=== PATIENT | female | born 2000 | race Asian ===

== ENCOUNTER 2025-09-10 08:46 | Outpatient (REF) | payer OTHER, SELFPAY ==
--- NOTE | ~2025-09-10 | US_ITS ---
EXAMINATION: US PELVIS CLINICAL INFORMATION: 25-year-old female, irregular bleeding past 2 months. IUD. COMPARISON: No prior previous imaging. TECHNIQUE: Ultrasound of the pelvis is performed using both transabdominal and transvaginal transducers along with Doppler. Transvaginal imaging is performed due to inadequate visualization transabdominally. FINDINGS: Uterus: The uterus is anteverted, anteflexed and measures 7.7 x 3.3 x 4.8 cm. The cervix appears normal. The double wall endometrial thickness is 5 mm. It is uniform in appearance. The IUD appears appropriately positioned within the endometrial canal. The uterus is smooth in contour and has normal myometrial echogenicity. No visible fibroid. Adnexa: Both ovaries are visualized. There is normal color flow to the adnexa. There is no ovarian torsion. There is no pelvic ascites or fluid collection. There are no adnexal masses. Right ovary measures 3.2 x 1.9 x 1.8 cm. Volume = 5.6 mL. Normal sonographic appearance. Left ovary measures 3.3 x 3.2 x 3.3 cm. Volume = 18.3 mL. There is a follicular simple cyst measuring 2.9 x 2.2 x 2.6 cm. Otherwise normal sonographic appearance. US/US pelvic and transvaginal IMPRESSION: 1. Normal-appearing endometrium with appropriately positioned IUD. 2. Normal myometrium without focal abnormality. 3. Left ovarian follicular cyst measuring 2.9 cm. Ovaries are otherwise normal. 4. No free pelvic fluid present. Electronically signed by: Juwan Malloy MD 09/10/2025 11:23 AM [facility]
== END 2025-09-10 08:47 | disposition home or self-care (01) ==
LOC: HO.UMASIMG 08:46
PROVIDERS: Visit Provider Nurse Practitioner Women's Health
DX: N92.6 Irregular menstruation, unspecified (principal)
CPT/HCPCS: 76830; 76856

== ENCOUNTER → 2025-09-10 10:30 | Outpatient (BNV) | payer OTHER, SELFPAY | PROVIDERS: Visit Provider Radiology Diagnostic Radiology | DX: N83.02 Follicular cyst of left ovary (principal); N92.6 Irregular menstruation, unspecified | CPT/HCPCS: 76830; 76856 ==